=== PATIENT | male | born 1935 ===

== ENCOUNTER 2018-06-18 16:18 | Inpatient (IN) | payer OTHER, MEDICARE ==
[2018-06-18 22:22] VITALS: BMI 25.7
[2018-06-18] MEDS: Docusate-Senna 50 mg-8.6 mg Tab PO SCH (23:37)
[2018-06-19 07:22] LABS: HEMOGLOBIN 13.4 g/dL (12.0-18.0); MEAN CORPUSCULAR HEMOGLOBIN 32.7 pg (27.0-31.0); RBC 4.09 Mil/uL (4.40-5.90); RED CELL DISTRIBUTION WIDTH 14.6 % (11.5-14.5); WHITE BLOOD COUNT 6.5 K/uL (4.8-10.8)
[2018-06-19 07:25] LABS: ALB/GLOB RATIO 0.9 (1.0-2.1); ALBUMIN 3.8 g/dL (3.5-5.0); CALCIUM 9.1 mg/dL (8.4-10.2)
[2018-06-19 07:26] LABS: INR 1.1; PROTHROMBIN TIME 12.6 Seconds (9.8-13.1)
--- NOTE | 2018-06-19 10:26 | CP.PCM.HP ---
History of Present Illness - History of Present Illness History of Present Illness: 82 year old male admitted to [facility] acute inpatient rehabilitation following an admission with dysarthria and dysphagia 2/2 right MCA distribution infarct with conversion. Patient seen and examined at bedside. No complaints offered at this time. Feels well. Left hand weakness that is improving. Denies chest pain, headache, sob, palpitaitons. Present on Admission - Present on Admission Any Indicators Present on Admission: No Review of Systems - Review of Systems All systems: reviewed and no additional remarkable complaints except (mentioned above) Past Patient History - Past Medical History & Family History Past Medical History?: Yes Past Family History: Reviewed and not pertinent - Past Social History Smoking Status: Never Smoked - CARDIAC Hx Cardiac Disorders: Yes Hx Hypertension: Yes - PULMONARY Hx Respiratory Disorders: No - NEUROLOGICAL Hx Neurological Disorder: Yes HX Cerebrovascular Accident: Yes (06/10/2018-Acute Cerebral infarct with Hemorrhagic conversion) - HEENT Hx HEENT Problems: Yes Other/Comment: uses eyeglasses for distance - RENAL Hx Chronic Kidney Disease: No - ENDOCRINE/METABOLIC Hx Endocrine Disorders: No - HEMATOLOGICAL/ONCOLOGICAL Hx Blood Disorders: No Hx AIDS: No Hx Human Immunodeficiency Virus (HIV): No - INTEGUMENTARY Hx Dermatological Problems: No - MUSCULOSKELETAL/RHEUMATOLOGICAL Hx Musculoskeletal Disorders: No Hx Falls: No Hx Gout: Yes - GASTROINTESTINAL Hx Gastrointestinal Disorders: No - GENITOURINARY/GYNECOLOGICAL Hx Genitourinary Disorders: No - PSYCHIATRIC Hx Psychophysiologic Disorder: No Hx Substance Use: No - SURGICAL HISTORY Hx Surgeries: No - ANESTHESIA Hx Anesthesia: No Hx Malignant Hyperthermia: No Meds Allergies/Adverse Reactions: Allergies Allergy/AdvReac Type Severity Reaction Status Date / Time No Known Allergies Allergy Verified 06/18/18 22:23 Physical Exam - Constitutional Appears: Non-toxic, No Acute Distress - Head Exam Head Exam: NORMAL INSPECTION - Eye Exam Eye Exam: Normal appearance - Neck Exam Neck exam: Positive for: Normal Inspection - Respiratory Exam Respiratory Exam: NORMAL BREATHING PATTERN - Cardiovascular Exam Cardiovascular Exam: +S1, +S2 - GI/Abdominal Exam GI & Abdominal Exam: Soft - Neurological Exam Neurological exam: Alert, Oriented x3 - Psychiatric Exam Psychiatric exam: Normal Affect, Normal Mood - Skin Skin Exam: Normal Color, Warm Results - Vital Signs Recent Vital Signs: Last Vital Signs Temp 98.1 F 06/19/18 09:45 Pulse 88 06/19/18 09:45 Resp 18 06/19/18 09:45 BP 152/75 H 06/19/18 09:45 Pulse Ox 98 06/19/18 09:45 - Labs Result Diagrams: 06/19/18 06:30 06/19/18 06:30 Labs: Laboratory Results - last 24 hr 06/19/18 06/19/18 06/19/18 06:30 06:30 06:30 WBC 6.5 RBC 4.09 L Hgb 13.4 Hct 39.3 MCV 96.0 H MCH 32.7 H MCHC 34.0 RDW 14.6 H Plt Count 235 PT 12.6 INR 1.1 Sodium 142 Potassium 4.2 Chloride 106 Carbon Dioxide 25 Anion Gap 15 BUN 41 H Creatinine 1.7 H Est GFR ( Amer) 47 Est GFR (Non-Af Amer) 39 Random Glucose 108 Calcium 9.1 Total Bilirubin 0.8 AST 39 ALT 26 Alkaline Phosphatase 81 Total Protein 8.1 Albumin 3.8 Globulin 4.3 H Albumin/Globulin Ratio 0.9 L Assessment & Plan - Assessment and Plan (Free Text) Assessment: 82 yo male admitted to acute rehab after CVA with conversion plan monitor labs monitor vitals PT/OT neurology consulted Dr. Hawkins consulted meds as prescribed rest of plan as ordered
--- NOTE | 2018-06-19 15:50 | PCM.OPOC ---
Physiatry Overall Plan of Care - Overall Plan of Care Estimated Length of Stay in Weeks: 3 Rehab Impairment: Mobility, Gait, Speech, Balance, Coordination Etiologic Diagnosis: Cerebrovascular Accident Rehab/Medical Prognosis: Fair - Anticipated Interventions Physical Therapy:: Yes Occupational Therapy:: Yes Speech Therapy:: Yes Recreational Therapy:: Yes - Therapy Goals Bed Mobility: Supervision Ambulation: Supervision Functional Positional Changes:: Supervision - Discharge Plan Identification of Barriers to Discharge: Home Situation Discharge Destination: Home
--- NOTE | 2018-06-19 15:52 | CP.PCM.CON ---
History of Present Illness - History of Present Illness History of Present Illness: Dr Hawkins PMR consultation on Sonido Molina, born 1935 who has been admitted to [facility] acute inpatient rehabilitation following an admission with dysarthria and dysphagia with left HP secondary to a right MCA distribution infact. Stable and ready for rehabilitation. [employer] independent. Review of Systems - Constitutional Constitutional: absent: Chills - EENT Eyes: absent: Change in Vision Ears: absent: Ear Discharge, Ear Pain, Dizziness Nose/Mouth/Throat: absent: Nasal Congestion - Cardiovascular Cardiovascular: absent: Chest Pain, Dyspnea on Exertion - Respiratory Respiratory: absent: Dyspnea, Hemoptysis - Gastrointestinal Gastrointestinal: absent: Belching, Constipation - Musculoskeletal Musculoskeletal: absent: Back Pain - Integumentary Integumentary: absent: Bleeding Lesions - Neurological Neurological: absent: Abnormal Movements, Radicular Pain - Psychiatric Psychiatric: absent: Anxiety Past Patient History - Past Medical History & Family History Past Medical History?: Yes - Past Social History Smoking Status: Never Smoked Home Situation {Lives}: Friends - CARDIAC Hx Cardiac Disorders: Yes Hx Hypertension: Yes - PULMONARY Hx Respiratory Disorders: No - NEUROLOGICAL HX Cerebrovascular Accident: Yes (06/10/2018-Acute Cerebral infarct with Hemorrhagic conversion) - HEENT Hx HEENT Problems: Yes Other/Comment: uses eyeglasses for distance - RENAL Hx Chronic Kidney Disease: No - ENDOCRINE/METABOLIC Hx Endocrine Disorders: No - HEMATOLOGICAL/ONCOLOGICAL Hx Blood Disorders: No Hx AIDS: No Hx Human Immunodeficiency Virus (HIV): No - INTEGUMENTARY Hx Dermatological Problems: No - MUSCULOSKELETAL/RHEUMATOLOGICAL Hx Musculoskeletal Disorders: No Hx Falls: No Hx Gout: Yes - GASTROINTESTINAL Hx Gastrointestinal Disorders: No - GENITOURINARY/GYNECOLOGICAL Hx Genitourinary Disorders: No - PSYCHIATRIC Hx Psychophysiologic Disorder: No Hx Substance Use: No - SURGICAL HISTORY Hx Surgeries: No - ANESTHESIA Hx Anesthesia: No Hx Malignant Hyperthermia: No Meds Allergies/Adverse Reactions: Allergies Allergy/AdvReac Type Severity Reaction Status Date / Time No Known Allergies Allergy Verified 06/18/18 22:23 - Medications Medications: Current Medications Atorvastatin Calcium (Lipitor) 40 mg PO HS [facility] Last Admin: 06/18/18 23:32 Dose: 40 mg Lisinopril (Zestril) 40 mg PO DAILY [facility] Last Admin: 06/19/18 08:52 Dose: 40 mg Senna/Docusate Sodium (Senokot S 50 Mg-8.6 Mg) 2 tab PO HS [facility] Last Admin: 06/18/18 23:37 Dose: Not Given Physical Exam - Constitutional Appears: Well, Non-toxic, No Acute Distress - Head Exam Head Exam: ATRAUMATIC, NORMAL INSPECTION, NORMOCEPHALIC - Eye Exam Eye Exam: EOMI - ENT Exam ENT Exam: Mucous Membranes Moist - Respiratory Exam Respiratory Exam: NORMAL BREATHING PATTERN - Cardiovascular Exam Cardiovascular Exam: REGULAR RHYTHM - GI/Abdominal Exam GI & Abdominal Exam: Normal Bowel Sounds. absent: Distended - Extremities Exam Extremities exam: Negative for: calf tenderness - Neurological Exam Neurological exam: Alert, CN II-XII Intact, Oriented x3 - Psychiatric Exam Psychiatric exam: Anxious - Skin Skin Exam: Warm Results - Vital Signs Recent Vital Signs: Last Vital Signs Temp 98.1 F 06/19/18 09:45 Pulse 88 06/19/18 09:45 Resp 18 06/19/18 09:45 BP 152/75 H 06/19/18 09:45 Pulse Ox 98 06/19/18 09:45 - Labs Result Diagrams: 06/19/18 06:30 06/19/18 06:30 Labs: Laboratory Results - last 24 hr 06/19/18 06/19/18 06/19/18 06:30 06:30 06:30 WBC 6.5 RBC 4.09 L Hgb 13.4 Hct 39.3 MCV 96.0 H MCH 32.7 H MCHC 34.0 RDW 14.6 H Plt Count 235 PT 12.6 INR 1.1 Sodium 142 Potassium 4.2 Chloride 106 Carbon Dioxide 25 Anion Gap 15 BUN 41 H Creatinine 1.7 H Est GFR ( Amer) 47 Est GFR (Non-Af Amer) 39 Random Glucose 108 Calcium 9.1 Total Bilirubin 0.8 AST 39 ALT 26 Alkaline Phosphatase 81 Total Protein 8.1 Albumin 3.8 Globulin 4.3 H Albumin/Globulin Ratio 0.9 L Assessment & Plan - Assessment and Plan (Free Text) Assessment: PT/OT to continue to help increase functional independence Team conference for d/c planning Pain: controlled Vascular: no evidence of DVT GI: No evidence of constipation or diarrhea No clear focal strength deficit. Good AROM + dysarthria noted Patient is an excellent acute rehabilitation candidate and will have focused speech, PT, OT and recreational therapy to help facilitate a safe and appropriate d/c plan Impairment code: 01.1
[2018-06-19] MEDS: Docusate-Senna 50 mg-8.6 mg Tab PO SCH (22:39)
[2018-06-20] MEDS: Docusate-Senna 50 mg-8.6 mg Tab PO SCH (21:26)
--- NOTE | 2018-06-20 23:05 | CP.PCM.PN ---
Subjective - Date & Time of Evaluation Date of Evaluation: 06/20/18 Time of Evaluation: 11:00 - Subjective Subjective: patient seen and examined at bedside. no complaints offered today doing well with PT/OT Objective - Vital Signs/Intake and Output Vital Signs (last 24 hours): Temp Pulse Resp BP Pulse Ox 97.5 F L 78 20 134/78 95 06/20/18 20:30 06/20/18 20:30 06/20/18 20:30 06/20/18 20:30 06/20/18 20:30 - Medications Medications: Current Medications Atorvastatin Calcium (Lipitor) 40 mg PO HS [facility] Last Admin: 06/20/18 21:21 Dose: 40 mg Lisinopril (Zestril) 40 mg PO DAILY [facility] Last Admin: 06/20/18 08:15 Dose: 40 mg Senna/Docusate Sodium (Senokot S 50 Mg-8.6 Mg) 2 tab PO [facility] Last Admin: 06/20/18 21:26 Dose: Not Given - Labs Labs: 06/19/18 06:30 06/19/18 06:30 PT 12.6 Seconds (9.8-13.1) 06/19/18 06:30 INR 1.1 06/19/18 06:30 - Additional Findings Additional findings: - Constitutional Appears: Non-toxic, No Acute Distress - Head Exam Head Exam: NORMAL INSPECTION - Eye Exam Eye Exam: Normal appearance - Neck Exam Neck exam: Positive for: Normal Inspection - Respiratory Exam Respiratory Exam: NORMAL BREATHING PATTERN - Cardiovascular Exam Cardiovascular Exam: +S1, +S2 - GI/Abdominal Exam GI & Abdominal Exam: Soft - Neurological Exam Neurological exam: Alert, Oriented x3 - Psychiatric Exam Psychiatric exam: Normal Affect, Normal Mood - Skin Skin Exam: Normal Color, Warm Assessment and Plan - Assessment and Plan (Free Text) Assessment: 82 yo male admitted to acute rehab after CVA with conversion plan monitor labs monitor vitals PT/OT neurology consulted Dr. Hawkins consulted meds as prescribed rest of plan as ordered
[2018-06-21] MEDS ORDERED: Docusate-Senna 50 mg-8.6 mg Tab PO PRN (18:05)
--- NOTE | 2018-06-21 18:16 | CP.PCM.PN ---
Subjective - Date & Time of Evaluation Date of Evaluation: 06/21/18 Time of Evaluation: 18:15 - Subjective Subjective: Patient seen in the room NAD left hand with decreased strength and dexterity. otherwise has good neurological return to this point + dysarthria continue current care Objective - Vital Signs/Intake and Output Vital Signs (last 24 hours): Temp Pulse Resp BP Pulse Ox 97.2 F L 82 18 147/78 98 06/21/18 08:14 06/21/18 08:14 06/21/18 08:14 06/21/18 08:14 06/21/18 08:14 - Medications Medications: Current Medications Atorvastatin Calcium (Lipitor) 40 mg PO HS [facility] Last Admin: 06/20/18 21:21 Dose: 40 mg Lisinopril (Zestril) 40 mg PO DAILY [facility] Last Admin: 06/21/18 08:06 Dose: 40 mg Senna/Docusate Sodium (Senokot S 50 Mg-8.6 Mg) 2 tab PO HS PRN PRN Reason: Constipation - Labs Labs: 06/19/18 06:30 06/19/18 06:30 PT 12.6 Seconds (9.8-13.1) 06/19/18 06:30 INR 1.1 06/19/18 06:30
--- NOTE | 2018-06-22 11:30 | CON ---
DATE: 06/22/2018 REASON FOR CONSULTATION: Stroke. HISTORY OF PRESENTING ILLNESS: The patient is an 82-year-old male who was admitted to acute rehabilitation center after the patient had a stroke involving the right MCA territory. There was some hemorrhagic conversion of the infarct. The patient continues to have weakness on the left side, particularly in the left upper extremity. He denies having any headache or dizziness. REVIEW OF SYSTEMS: Denies any headache, dizziness, chest pain, shortness of breath, abdominal pain, constipation, diarrhea, dysuria, cough, or sputum production. PAST MEDICAL HISTORY: Includes hypertension. CURRENT MEDICATIONS: Include atorvastatin, lisinopril, and Senokot. ALLERGIES: NO KNOWN DRUG ALLERGIES. SOCIAL HISTORY: He denies smoking, use of alcohol, or illicit drugs. FAMILY HISTORY: Reviewed and noncontributory to the case. PHYSICAL EXAMINATION: GENERAL: The patient is an elderly male, sitting in no acute distress. VITAL SIGNS: Blood pressure is 144/78, heart rate is 79 per minute, breathing at a rate of 16 per minute, temperature is 97.7 degrees Fahrenheit. HEENT: Head is normocephalic and atraumatic. NECK: Supple. There are no carotid bruits. LUNGS: Clear. CARDIOVASCULAR SYSTEM: S1 and S2 audible. No murmurs. ABDOMEN: Soft and nontender. Bowel sounds present. NEUROLOGIC EXAMINATION: Mental status: The patient is awake and alert, oriented to time, place, person. Speech is slightly dysarthric. Naming and repetition is normal. Memory and cognition appears intact. Cranial nerve examination: Pupils are 3 mm bilaterally, reactive to light. Visual hunter are full. Extraocular movements are intact. There is decreased sense of labial fold on the left side. Palate is upgoing bilaterally and tongue is midline. Motor examination: Tone is normal. Power in the right side is 5/5, the left side in the upper extremity 3 to 4/5 and the lower extremity 4/5. Plantars are downgoing bilaterally. Cerebellar examination: [id number] shows no dysmetria. Gait is deferred at the moment. LABORATORY DATA: Labs reviewed show WBC of 6.5, hemoglobin of 13.4, hematocrit of 39.3, and platelets of 235. INR is 1.1. Sodium 142, potassium 4.2, chloride 106, carbon dioxide content 25, BUN 41, creatinine 1.7, and glucose 108. DIAGNOSTIC DATA: The patient had a CT scan of the head done on 06/11/2018, which did show moderate size right MCA territory infarct involving the right frontal opercular cortical region. There is an area of signal loss consistent with hemorrhagic conversion. IMPRESSION: Cerebrovascular accident with right middle cerebral artery territory infarction with some hemorrhagic conversion. RECOMMENDATIONS: 1. It has been about two weeks since the patient had a stroke with hemorrhagic conversion. The patient may be started on aspirin 81 mg once a day. 2. The patient to be continued on statin. 3. The patient to have physical therapy and speech therapy. 4. Please continue supportive care and other treatment. Thank you for the opportunity to participate in the care of this patient. Rekha Paez MD
[2018-06-22 11:48] LABS: ALBUMIN 4.2 g/dL (3.5-5.0); CALCIUM 9.5 mg/dL (8.4-10.2)
--- NOTE | 2018-06-22 13:19 | PCM.PSYTMC ---
Acute Rehab Team Conference - - Vital Signs: Vital Signs (Last 8 Hours): Vital Signs 06/22/18 06/22/18 06/22/18 08:05 09:14 09:16 Temperature 98.0 F 97.6 F Pulse Rate 79 77 78 Respiratory 20 20 Rate Blood Pressure 144/78 144/78 144/78 O2 Sat by Pulse 98 Oximetry Pain: 0 - Medications/Other Issues: Comment: patient started on asa by neurologist today. - Toileting: Toileting: Contact Guard - Bladder Management: Bladder Pattern: Normal Voiding Method: Toilet - Transfers: Transfers: Contact Guard - Patient/Family Teaching: Other Intervention:: re: cva. - Goals/Time Frame: Comment: patient to be able to verbalized mgt and s/s of stroke. pt verbalized understanding. - Provider: Registered Nurse:: [facility] - Bed Mobility Bed Mobility: Supervision, Verbal Cues - Transfers Wheelchair to Mat: Supervision, Verbal Cues, Contact Guard Sit to Stand: Supervision, Verbal Cues Comment: no device - Ambulation Level of Assistance: Supervision, Verbal Cues, Contact Guard Distance (ft.): 125 Assistive Devices: N/A Orthoses: n/a Comment: -125 feet x 6 trials with frequent standing rest breaks without device with CG/CS. -HR: 109bpm top 117bpm during gait, asymptomatic. -requires cues for reciprocal arm swing. -postural changes during gait likely due to his age and long-standing chronic postural changes. -limited swing noted during gait in BLE - Stair Negotiation Stairs: Level of Assistance: Supervision, Verbal Cues, Contact Guard Comment: -8 6 inch steps with reciprocal pattern with CG/CS. -VCs for sequencing and safety. -requires cues for improved safety and reduced imp ulsivity - Standing Balance Static Stand: Contact Guard Assist - Pain Pain (assessed during therapy session): 0 Comment: pt denies - Insight/Carryover Insight/Carryover: Fair - Patient/Family Education Comment: lacks insight into safety and effects of his impairments. -therapy schedule, therapy goals, mobility, use of call truong, reiteration of dysphagia diet and not to gargle water as it is a thin liquid, CVA recovery - Assessment/Plan Assessment: Mr. Molina continues to require CG/CS for all mobility without use of an assistive device. Patient presents with impaired insight into his impairments with impulsivity noted. Patient lacks safety awareness during mobility. PT recommends continued skilled therapy to maximize safety and independence with all mobility s/p acute CVA. note: patient reports he has a live-in care-taker whom he pays to assist him with his affairs. - Goals Timeframe: 7 days Goals: -mod I with bed/mat mobility. -DS with transfers, no device. -S to ambulate 500 feet. -S to negotiate 1 flight of steps with single rail - Provider Physical Therapist:: Shelley Max License Number:: [id number] Occupational Therapy - Arousal/Attention/Orientation Level of Consciousness: Awake, Alert Patient Orientation: Person, Place, Time, Appropriate to Age, Appropriate to Situation Assessment Comment: + impulsivity & distractibility - ADL/IADL Self Feeding: Supervision, Verbal Cues, Set-up Help Grooming: Verbal Cues, Set-up Help, Minimal Assistance Dressing-Upper Ext: Verbal Cues, Set-up Help, Minimal Assistance Dressing-Lower Ext: Verbal Cues, Set-up Help, Minimal Assistance Comment: Pt uses favio-techniques for upper/lower body dressing tasks. Will assess bathing 12/4 in pm. - Sitting Balance Static Sitting: Supervision Dynamic Sitting: Reaches across midline, Reaches out of base of support, Reaches within base of support, Contact Guard Assist Comment: seated unsupported - Transfers Wheelchair to Bed Transfers: Verbal Cues, Set-up Help, Contact Guard, Minimal Assistance Toilet Transfers: Verbal Cues, Set-up Help, Contact Guard, Minimal Assistance Comment: -no assistive device. -needs cues for pacing - Wheelchair Management Level of Assistance: Supervision, Verbal Cues, Set-up Help Distance (ft.): 75 - Upper Extremity Status Right Upper Extremity Comment: A/PROM is WNLS, strength 4/5 Left Upper Extremity Comment: -L shoulder flex: 3/5. -L shoulder abd: 3-/5. -L elbow flex/extension: 3/5. -L forearm pronation/supination: 3/5. -L wrist flex/extension: 3-/5. -L grasp/release: 3-/5 , 1/2 range(no isolation noted), L thumb: trace. PROM is WNLS, AROM limited by motor control//strength - Pain Pain (assessed during therapy session): 0 - Insight/Carryover Insight/Carryover: Fair - Patient/Family Education Comment: -educated on rehab/OT goals, functional impairments, plan of care. - w/c propulsion/management. -HEP/LUE management, ROM exercises to complete in room. -adl, functional transfers/mobility training using adaptive/compensatory strategies, pacing, energy conservation. -safety--use of call truong to call for assistance - Assessment/Plan Assessment: Pt is a 82 year old [place] male with dx: Acute infarct with hemorrhagic conversion. *Precautions: +falls(bed/w/c alarms), +impulsivity, cardiac, aspiration precautions--nectar/honey thick and finely chopped, teaspoon for drinks(needs SUPERVISION with meals). Pt limited by the following impairments: -impaired AROM/strength/gross/fine motor control in LUE. - impaired standing balance/tolerance. -impaired activity tolerance/endurance. - impaired safety awareness. -impaired sensation LUE. -impaired knowledge of compensatory/adaptive strategies. -impaired insight/judgement---which impact on functional performance of self care, transfers & mobility. Pt will continue to benefit from skilled occupational therapy to address functional impairments to maximize function & safety in self care using adaptive/compensatory strategies, +DME needs assessment, & caregiver ed for safe transition home with services. Pt demonstrates increase function in LUE t/o as well improve function in upper/lower body dressing(min assist), w/c management/propulsion(supervision ~75 feet). *Goal: -Intermittent Supervision for adls, transfers/mobility, light homemaking and Iadls with assistive devices prn. -Caregiver to be I assisting/cueing pt with daily living tasks prn - Goals Timeframe: 1 week Comment: *FEEDING: I/setup. *GROOMING: I/setup seated: Supervision standing at sink. *UPPER BODY DRESSING: I/setup favio-techniques. *LOWER BODY DRESSING: Supervision & verbal cues. *TOILETING: CS and verbal cues. *BATHING: Close S and verbal cues seated intermittently. *LUE STRENGTH: Increase 3+/5 or greater so can use as gross assist during bimanual tasks--i.e opening containers/packages. *RETRIEVE, GATHER, TRANSPORT ITEMS: Supervision and verbal cues as needed to complete daily living tasks. *W/C PROPULSION/MANAGEMENT: 150 feet+ with Mod I, manage B brake with Mod I. *CAREGIVER ED: Pt's caregiver to assist pt with daily tasks with Supervision from staff - Provider Occupational Therapist:: Myra Decker License Number: [id number] Speech Therapy - Consult Information Patient on Program: Yes Medical Diagnosis: CVA Treatment Diagnosis: -moderate dysarthria. -moderate dysphagia - Assessment Speech/Articulation Impairment: Moderate Dysphagia/Swallowing Impairment: Moderate - Plan Assessment: Sonido Molina presents with 1.) moderate dysarthria characterized by L oral motor weakness resulting in impaired articulatory precision and mildly impaired respiration for phonation, all negatively impacting speech intelligibility; and 2.) moderate oral and suspected pharyngeal dysphagia characterized by L facial weakness resulting in impaired labial seal and bolus manipulation, impaired oral clearance with intermittent L sided pocketing and lingual stasis with solids, mildly prolonged A-P transit time, mildly decreased laryngeal elevation, and intermittent throat clearing with thin liquids; no overt s/s aspiration on all other consistencies tested. Recommend diet advancement to finely chopped solids and nectar thick liquids; maintain aspiration precautions. Also recommend Modified Barium Swallow (MBS) to objectively r/o aspiration and assess pharyngeal swallow function to determine the safest and most lenient PO diet. Pt would benefit from speech and dysphagia tx for improved swallow function and speech intelligibility. Plan: Continue Dysphagia Therapy, Continue Speech/Language Therapy Frequency: 3-5 times per week Duration: 1 week Goals/Timeframe: Please see IE completed 06/21/18 for tx goals/POC Recommendations: -Speech and dysphagia tx 3-5x/week. -Finely chopped solids/nectar thick liquids. -MBS to objectively r/o aspiration and determine least restrictive diet - Provider Therapist: Essence Jones License Number: [id number] Recreational Therapy - Participation Participation: Participates in Individual and/or Group Sessions, Monitors His/Her Own Leisure Time - Attendance Attendance: 3-5 times per week - Activities Leisure Activities: Cards and Games - Socialization Level of Socialization: Initiates/interacts freely with care givers and peer - Diversional Time Diversional Time: television - Assessment Assessment/Plan: Pt was oriented to and educated about the benefits of participating in recreation therapy sessions throughout length of stay on unit. Pt was agreeable to participate in sessions and would benefit from participating in recreation therapy to improve leisure awareness level, utilizing L hand in leisure tasks such as going on his laptop, and improving direction following. Will encourage throughout stay on unit. Problems Currently Limiting Participation: L UE weakness, decrease leisure awareness level, decrease safety awareness level, decrease attention to task, impaired direction following Goals and Time Frame: Pt will be encouraged to participate in 1:1 and group recreation therapy sessions 3-5x week to improve leisure awareness level, activity tolerance level, attention to task, direction following, and utilizing L hand throughout leisure tasks by date of discharge. - Provider Therapist: Jenna Carter Nutrition - Current Diet Current Diet/Supplement/Feedings: 1. Consume 75-100% at mealtime (met, continue). 2. Clinical nutrition to follow any downgrades/upgrades in diet/beverage consistencies per AWNING INSTALLER (Continue) - Appetite Percent Meal Consumed: 75-100% - Comments Comments: Pt seen with good appetite, no GI upset. Swallowing issues as noted per AWNING INSTALLER. - Assessment/Goals/Time Frame Assessments/Goals/Time Frame: Seen 06/21, Follow up planned 06/25. 1. Consume 75- 100% at mealtime (met, continue). 2. Clinical nutrition to follow any downgrades/upgrades in diet/beverage consistencies per AWNING INSTALLER (Continue) - Provider Provider: Christopher Mansfield Case Management - Psychosocial Assessment Support Systems: Ines Clark (friend)- Psychological Interventions/Needs: Patient is AAOx3 and able to verbalize needs. 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 Patient also has about 7 steps to navigate to enter his single level home. Patient/Family Meeting: CM met with patient and rehab team. Intervention/Goal/Outcome: 1. Goal: Intermittent Supervision/Modified Independent 2. Plan: home with home health 3. DME needs 4. schedule follow ups 5. continued emotional support 6. caregiver training with friend - Discharge Plan Discharge Plan: Home with services Home Services: [facility] - Provider Provider: Rita Lazar License Number: [id number] Rehabilitation Plan - Treatment Plan Treatment Plan: Physical Therapy, Occupational Therapy, Speech, Dietary, Patient/Family Education - Recommendation Recommendation: Physical Therapy, Occupational Therapy, Speech, Dietary, Patient/Family Education - Discharge Plan Estimated Date of Discharge: 07/01/18 Discharge to: Home
[2018-06-22] MEDS ORDERED: Barium Sulfate Susp 0.1% w/v, 0.1% w/w 450 mL Bottle PO ONE (13:31)
--- NOTE | 2018-06-22 15:40 | RAD ---
Date of service: 06/22/2018 PROCEDURE: Modified barium video swallow HISTORY: dysphagia COMPARISON: Not available TECHNIQUE: Modified barium video swallow was performed in conjunction with a member of the speech therapy department. Swallowing of barium mixtures of varying viscosity was observed fluoroscopically. Total time of fluoroscopy was 130.5 sec. Cumulative dose is 6.08 mGy FINDINGS: . transient laryngeal penetration was observed with swallowing of thin liquids. There is no evidence of aspiration throughout this examination. No additional abnormality was witnessed. Please see the full evaluation from the department of speech therapy. IMPRESSION: No evidence of aspiration. Please see full report from speech therapy department.
--- NOTE | 2018-06-22 19:01 | CP.PCM.PN ---
Subjective - Date & Time of Evaluation Date of Evaluation: 06/22/18 Time of Evaluation: 19:00 - Subjective Subjective: Patient seen in the room, just back from [facility] speech is recommending vital stim therapy he has regained some left thumb movement doing well continue current care ELOS 07/01/18 Objective - Vital Signs/Intake and Output Vital Signs (last 24 hours): Temp Pulse Resp BP Pulse Ox 97.6 F 122 H 20 144/78 98 06/22/18 09:16 06/22/18 14:44 06/22/18 09:16 06/22/18 09:16 06/22/18 09:14 - Medications Medications: Current Medications Aspirin (Ecotrin) 81 mg PO DAILY [facility] Last Admin: 06/22/18 09:43 Dose: 81 mg Atorvastatin Calcium (Lipitor) 40 mg PO HS [facility] Last Admin: 06/21/18 21:24 Dose: 40 mg Lisinopril (Zestril) 40 mg PO DAILY [facility] Last Admin: 06/22/18 08:05 Dose: 40 mg Senna/Docusate Sodium (Senokot S 50 Mg-8.6 Mg) 2 tab PO HS PRN PRN Reason: Constipation - Labs Labs: 06/19/18 06:30 06/22/18 11:10 PT 12.6 Seconds (9.8-13.1) 06/19/18 06:30 INR 1.1 06/19/18 06:30
--- NOTE | 2018-06-22 20:36 | CP.PCM.CON ---
History of Present Illness - History of Present Illness History of Present Illness: I was asked by Dr García to see the patient. Patient was seen 06/22/182009 Patient is a 82 year old male with HTN who was admitted with CVA. The patient is not on aspirin therapy due to hemorrhagic conversion. He has been tachyc ardic with physical therapy. He denies chest pain or dyspnea. Review of Systems - Constitutional Constitutional: absent: As Per HPI, Anorexia, Chills, Daytime Sleepiness, Excessive Sweating, Fatigue, Fever, Frequent Falls, Headache, Increased Appetite, Lethargy, Malaise, Night Sweats, Snoring, Sleep Apnea, Weight Gain, Weight Loss, Weakness, Other - EENT Eyes: absent: As Per HPI, Blind Spots, Blurred Vision, Change in Vision, Decreased Night Vision, Diplopia, Discharge, Dry Eye, Exophthalmos, Floaters, Irritation, Itchy Eyes, Loss of Peripheral Vision, Pain, Photophobia, Requires Corrective Lenses, Sees Flashes, Spots in Vision, Tunnel Vision, Other Visual Disturbances, Loss of Vision, Other Ears: absent: As Per HPI, Decreased Hearing, Ear Discharge, Ear Pain, Tinnitus, Abnormal Hearing, Disequilibrium, Dizziness, Other Nose/Mouth/Throat: absent: As Per HPI, Epistaxis, Nasal Congestion, Nasal Discharge, Nasal Obstruction, Nasal Trauma, Nose Pain, Post Nasal Drip, Sinus Pain, Sinus Pressure, Bleeding Gums, Change in Voice, Dental Pain, Dry Mouth, Dysphagia, Halitosis, Hoarsness, Lip Swelling, Mouth Lesions, Mouth Pain, Odynophagia, Sore Throat, Throat Swelling, Tongue Swelling, Facial Pain, Neck Pain, Neck Mass, Other - Cardiovascular Cardiovascular: absent: As Per HPI, Acrocyanosis, Chest Pain, Chest Pain at Rest, Chest Pain with Activity, Claudication, Diaphoresis, Dyspnea, Dyspnea on Exertion, Edema, Irregular Heart Rhythm, Pain Radiating to Arm/Neck/Jaw, Leg Edema, Leg Ulcers, Lightheadedness, Orthopnea, Palpitations, Paroxysmal Nocturnal Dyspnea, Pedal Edema, Radiating Pain, Rapid Heart Rate, Slow Heart Rate, Syncope, Other - Respiratory Respiratory: absent: As Per HPI, Cough, Dyspnea, Hemoptysis, Dyspnea on Exertion, Wheezing, Snoring, Stridor, Pain on Inspiration, Chest Congestion, Excessive Mucous Production, Change in Mucous Color, Pain with Coughing, Other - Gastrointestinal Gastrointestinal: absent: As Per HPI, Abdominal Pain, Belching, Bloating, Change in Bowel Habits, Change in Stool Character, Coffee Ground Emesis, Constipation, Cramping, Diarrhea, Dyspepsia, Dysphagia, Early Satiety, Excessive Flatus, Fecal Incontinence, Heartburn, Hematemesis, Hematochezia, Loose Stools, Melena, Nausea, Odynophagia, Temesmus, Vomiting, Other - Genitourinary Genitourinary: absent: As Per HPI, Change in Urinary Stream, Difficulty Urinating, Dysuria, Flank Pain, Hematuria, Pyuria, Nocturia, Urinary Incontinence, Urinary Frequency, Urinary Hesitance, Urinary Urgency, Voiding Freq/Small Amts, Freq UTI, Hx Renal/Bladder Calculi, Hx /Renal Surgery, Bladder Distension, Other - Musculoskeletal Musculoskeletal: absent: As Per HPI, Abnormal Gait, Arthralgias, Atrophy, Back Pain, Deformity, Joint Swelling, Limited Range of Motion, Loss of Height, Muscle Cramps, Muscle Weakness, Myalgias, Neck Pain, Numbness, Radiating Pain into Limb, Stiffness, Tingling, Other - Integumentary Integumentary: absent: As Per HPI, Acne, Alopecia, Bleeding Lesions, Change in Hair, Change in Nails, Change in Pigmentation, Changing Lesions, Dry Skin, Erythema, Furuncle, Hirsutism, Lesions, New Lesions, Non-Healing Lesions, Photosensitivity, Pruritus, Rash, Skin Pain, Skin Ulcer, Sores, Striae, Swelling, Unusual Bruising, Wounds, Jaundice, Other - Neurological Neurological: absent: As Per HPI, Abnormal Gait, Abnormal Hearing, Abnormal Movements, Abnormal Speech, Behavioral Changes, Burning Sensations, Confusion, Convulsions, Disequilibrium, Dizziness, Numbness, Focal Weakness, Frequent Falls, Headaches, Lack of Coordination, Loss of Vision, Memory Loss, Paresthesias, Radicular Pain, Restless Legs, Sensory Deficit, Syncope, Tingling, Tremor, Vertigo, Weakness, Other Visual Disturbances, Other - Psychiatric Psychiatric: absent: As Per HPI, Abnormal Sleep Pattern, Anhedonia, Anxiety, Auditory Hallucinations, Behavioral Changes, Change in Appetite, Change in Libido, Confusion, Depression, Difficulty Concentrating, Hallucinations, Homicidal Ideation, Hopelessness, Irritability, Memory Loss, Mood Swings, Panic Attacks, Paranoia, Suicidal Ideation, Visual Hallucinations, Tactile Hallucinations, Other - Endocrine Endocrine: absent: As Per HPI, Change in Body Appearance, Change in Libido, Cold Intolorance, Deepening of Voice, Excessive Sweating, Fatigue, Flushing, Heat Intolorance, Increase in Ring/Shoe/Hat Size, Palpitations, Polydipsia, Polyphagia, Polyuria, Other - Hematologic/Lymphatic Hematologic: absent: As Per HPI, Easy Bleeding, Easy Bruising, Lymphadenopathy, Other Past Patient History - Past Medical History & Family History Past Medical History?: Yes Past Family History: Reviewed and not pertinent - Past Social History Smoking Status: Never Smoked - CARDIAC Hx Cardiac Disorders: Yes Hx Hypertension: Yes - PULMONARY Hx Respiratory Disorders: No - NEUROLOGICAL Hx Neurological Disorder: Yes HX Cerebrovascular Accident: Yes (06/10/2018-Acute Cerebral infarct with Hemorrhagic conversion) - HEENT Hx HEENT Problems: Yes Other/Comment: uses eyeglasses for distance - RENAL Hx Chronic Kidney Disease: No - ENDOCRINE/METABOLIC Hx Endocrine Disorders: No - HEMATOLOGICAL/ONCOLOGICAL Hx Blood Disorders: No Hx AIDS: No Hx Human Immunodeficiency Virus (HIV): No - INTEGUMENTARY Hx Dermatological Problems: No - MUSCULOSKELETAL/RHEUMATOLOGICAL Hx Musculoskeletal Disorders: No Hx Falls: No Hx Gout: Yes - GASTROINTESTINAL Hx Gastrointestinal Disorders: No - GENITOURINARY/GYNECOLOGICAL Hx Genitourinary Disorders: No - PSYCHIATRIC Hx Psychophysiologic Disorder: No Hx Substance Use: No - SURGICAL HISTORY Hx Surgeries: No - ANESTHESIA Hx Anesthesia: No Hx Malignant Hyperthermia: No Meds Allergies/Adverse Reactions: Allergies Allergy/AdvReac Type Severity Reaction Status Date / Time No Known Allergies Allergy Verified 06/18/18 22:23 - Medications Medications: Current Medications Aspirin (Ecotrin) 81 mg PO DAILY [facility] Last Admin: 06/22/18 09:43 Dose: 81 mg Atorvastatin Calcium (Lipitor) 40 mg PO HS [facility] Last Admin: 06/21/18 21:24 Dose: 40 mg Lisinopril (Zestril) 40 mg PO DAILY [facility] Last Admin: 06/22/18 08:05 Dose: 40 mg Senna/Docusate Sodium (Senokot S 50 Mg-8.6 Mg) 2 tab PO HS PRN PRN Reason: Constipation Physical Exam - Constitutional Appears: Non-toxic - Head Exam Head Exam: NORMAL INSPECTION - Eye Exam Eye Exam: Normal appearance - ENT Exam ENT Exam: Mucous Membranes Moist - Neck Exam Neck exam: Positive for: Full Rom - Respiratory Exam Respiratory Exam: NORMAL BREATHING PATTERN - Cardiovascular Exam Cardiovascular Exam: REGULAR RHYTHM - GI/Abdominal Exam GI & Abdominal Exam: Normal Bowel Sounds - Rectal Exam Rectal Exam: Deferred - Extremities Exam Extremities exam: Negative for: pedal edema - Back Exam Back exam: NORMAL INSPECTION - Neurological Exam Neurological exam: Alert, Oriented x3 - Psychiatric Exam Psychiatric exam: Normal Affect - Skin Skin Exam: Normal Color Results - Vital Signs Recent Vital Signs: Last Vital Signs Temp 97.6 F 06/22/18 09:16 Pulse 122 H 06/22/18 14:44 Resp 20 06/22/18 09:16 BP 144/78 06/22/18 09:16 Pulse Ox 98 06/22/18 09:14 - Labs Result Diagrams: 06/19/18 06:30 06/22/18 11:10 Labs: Laboratory Results - last 24 hr 06/22/18 11:10 Sodium 140 Potassium 5.1 H Chloride 106 Carbon Dioxide 25 Anion Gap 14 BUN 35 H Creatinine 1.7 H Est GFR ( Amer) 47 Est GFR (Non-Af Amer) 39 Random Glucose 110 Calcium 9.5 Total Bilirubin 0.6 AST 38 ALT 28 Alkaline Phosphatase 81 Total Protein 8.4 H Albumin 4.2 Globulin 4.2 H Albumin/Globulin Ratio 1.0 - EKG Data EKG Interpreted by: Myself EKG shows normal: Sinus rhythm Assessment & Plan (1) Tachycardia Assessment and Plan: likley an element of deconditioning. recommend betablocker therapy. start Toprol XL 25 mg daily. Status: Acute (2) HTN (hypertension) Assessment and Plan: decrease lisinopril to 20 mg daily Status: Acute
[2018-06-22] MEDS: Metoprolol Succinate 25 mg XL Tab PO SCH (21:51)
[2018-06-23] MEDS: Metoprolol Succinate 25 mg XL Tab PO SCH (09:10)
[2018-06-23] MEDS ORDERED: Sod Polystyrene Sulf 15 gm/60 ml Susp PO ONE (09:14)
[2018-06-23 11:18] LABS: CALCIUM 8.9 mg/dL (8.4-10.2)
--- NOTE | 2018-06-23 17:42 | CP.PCM.PN ---
Subjective - Date & Time of Evaluation Date of Evaluation: 06/23/18 Time of Evaluation: 17:41 - Subjective Subjective: Patient seen in the room NAD ambulation continues to improve left hand is the most affected body part and showing some improvement in last few days Objective - Vital Signs/Intake and Output Vital Signs (last 24 hours): Temp Pulse Resp BP Pulse Ox 97.2 F L 99 H 20 159/77 H 95 06/23/18 09:44 06/23/18 17:12 06/23/18 17:12 06/23/18 17:12 06/23/18 17:12 - Medications Medications: Current Medications Aspirin (Ecotrin) 81 mg PO DAILY [facility] Last Admin: 06/23/18 09:10 Dose: 81 mg Atorvastatin Calcium (Lipitor) 40 mg PO HS [facility] Last Admin: 06/22/18 21:52 Dose: 40 mg Lisinopril (Zestril) 20 mg PO DAILY [facility] Last Admin: 06/23/18 09:09 Dose: 20 mg Metoprolol Succinate (Toprol Xl) 50 mg PO DAILY [facility] Senna/Docusate Sodium (Senokot S 50 Mg-8.6 Mg) 2 tab PO HS PRN PRN Reason: Constipation - Labs Labs: 06/19/18 06:30 06/23/18 10:55 PT 12.6 Seconds (9.8-13.1) 06/19/18 06:30 INR 1.1 06/19/18 06:30
[2018-06-24] MEDS: Metoprolol Succinate 50 mg XL Tab PO SCH (08:46)
--- NOTE | 2018-06-24 11:36 | CP.PCM.PN ---
Subjective - Date & Time of Evaluation Date of Evaluation: 06/21/18 Time of Evaluation: 11:00 - Subjective Subjective: patient seen and examined at bedside. no acute events overnight. feels well. denies cp/sob all available diagnostic data reviewed vital signs stable Objective - Constitutional Appears: Non-toxic, No Acute Distress - Head Exam Head Exam: NORMAL INSPECTION - Eye Exam Eye Exam: Normal appearance - Respiratory Exam Respiratory Exam: NORMAL BREATHING PATTERN - Cardiovascular Exam Cardiovascular Exam: +S1, +S2 - GI/Abdominal Exam GI & Abdominal Exam: Soft - Neurological Exam Neurological Exam: Alert, Awake, Oriented x3 - Psychiatric Exam Psychiatric exam: Normal Affect, Normal Mood - Skin Skin Exam: Normal Color, Warm Assessment and Plan Cont meds Cont tx Cont PT appreciate recommendations by 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
--- NOTE | 2018-06-24 11:37 | CP.PCM.PN ---
Subjective - Date & Time of Evaluation Date of Evaluation: 06/22/18 Time of Evaluation: 11:00 - Subjective Subjective: patient seen and examined at bedside. no acute events overnight. feels well. denies cp/sob all available diagnostic data reviewed vital signs stable Objective - Constitutional Appears: Non-toxic, No Acute Distress - Head Exam Head Exam: NORMAL INSPECTION - Eye Exam Eye Exam: Normal appearance - Respiratory Exam Respiratory Exam: NORMAL BREATHING PATTERN - Cardiovascular Exam Cardiovascular Exam: +S1, +S2 - GI/Abdominal Exam GI & Abdominal Exam: Soft - Neurological Exam Neurological Exam: Alert, Awake, Oriented x3 - Psychiatric Exam Psychiatric exam: Normal Affect, Normal Mood - Skin Skin Exam: Normal Color, Warm Assessment and Plan Cont meds Cont tx Cont PT appreciate recommendations by neuro/cardiology/vegetable loader
--- NOTE | 2018-06-24 11:38 | CP.PCM.PN ---
Subjective - Date & Time of Evaluation Date of Evaluation: 06/23/18 Time of Evaluation: 11:00 - Subjective Subjective: patient seen and examined at bedside. no acute events overnight. feels well. denies cp/sob all available diagnostic data reviewed vital signs stable Objective - Constitutional Appears: Non-toxic, No Acute Distress - Head Exam Head Exam: NORMAL INSPECTION - Eye Exam Eye Exam: Normal appearance - Respiratory Exam Respiratory Exam: NORMAL BREATHING PATTERN - Cardiovascular Exam Cardiovascular Exam: +S1, +S2 - GI/Abdominal Exam GI & Abdominal Exam: Soft - Neurological Exam Neurological Exam: Alert, Awake, Oriented x3 - Psychiatric Exam Psychiatric exam: Normal Affect, Normal Mood - Skin Skin Exam: Normal Color, Warm Assessment and Plan Cont meds Cont tx Cont PT appreciate recommendations by neuro/cardiology/cushion cover inspector
--- NOTE | 2018-06-24 11:39 | CP.PCM.PN ---
Subjective - Date & Time of Evaluation Date of Evaluation: 06/24/18 Time of Evaluation: 11:00 - Subjective Subjective: patient seen and examined at bedside. no acute events overnight. feels well. denies cp/sob all available diagnostic data reviewed vital signs stable Objective - Constitutional Appears: Non-toxic, No Acute Distress - Head Exam Head Exam: NORMAL INSPECTION - Eye Exam Eye Exam: Normal appearance - Respiratory Exam Respiratory Exam: NORMAL BREATHING PATTERN - Cardiovascular Exam Cardiovascular Exam: +S1, +S2 - GI/Abdominal Exam GI & Abdominal Exam: Soft - Neurological Exam Neurological Exam: Alert, Awake, Oriented x3 - Psychiatric Exam Psychiatric exam: Normal Affect, Normal Mood - Skin Skin Exam: Normal Color, Warm Assessment and Plan Cont meds Cont tx Cont PT appreciate recommendations by neuro/cardiology/cook mayonnaise
--- NOTE | 2018-06-24 16:45 | CP.PCM.PN ---
Subjective - Date & Time of Evaluation Date of Evaluation: 06/24/18 Time of Evaluation: 16:43 - Subjective Subjective: Patient is doing well denies sob/cp making good gains and is likely being discharged shortly given insurance authorization. Will need continued home therapies therapies. Objective - Vital Signs/Intake and Output Vital Signs (last 24 hours): Temp Pulse Resp BP Pulse Ox 98.1 F 81 20 117/61 99 06/24/18 08:24 06/24/18 13:44 06/24/18 08:24 06/24/18 08:46 06/24/18 08:24 - Medications Medications: Current Medications Aspirin (Ecotrin) 81 mg PO DAILY [facility] Last Admin: 06/24/18 08:46 Dose: 81 mg Atorvastatin Calcium (Lipitor) 40 mg PO HS [facility] Last Admin: 06/23/18 21:54 Dose: 40 mg Lisinopril (Zestril) 20 mg PO DAILY [facility] Last Admin: 06/24/18 08:45 Dose: 20 mg Metoprolol Succinate (Toprol Xl) 50 mg PO DAILY [facility] Last Admin: 06/24/18 08:46 Dose: 50 mg Senna/Docusate Sodium (Senokot S 50 Mg-8.6 Mg) 2 tab PO HS PRN PRN Reason: Constipation - Labs Labs: 06/19/18 06:30 06/23/18 10:55 PT 12.6 Seconds (9.8-13.1) 06/19/18 06:30 INR 1.1 06/19/18 06:30
[2018-06-25] MEDS: Metoprolol Succinate 50 mg XL Tab PO SCH (08:07)
--- NOTE | 2018-06-25 18:07 | CP.PCM.PN ---
Subjective - Date & Time of Evaluation Date of Evaluation: 06/25/18 Time of Evaluation: 18:06 - Subjective Subjective: Patient seen in the room + dysarthria remains continued progress in therapies ambulating 250' without AD set for d/c home 06/28/18 Objective - Vital Signs/Intake and Output Vital Signs (last 24 hours): Temp Pulse Resp BP Pulse Ox 98.1 F 72 18 169/82 H 97 06/25/18 08:07 06/25/18 11:59 06/25/18 08:07 06/25/18 08:07 06/25/18 08:07 - Medications Medications: Current Medications Aspirin (Ecotrin) 81 mg PO DAILY [facility] Last Admin: 06/25/18 08:06 Dose: 81 mg Atorvastatin Calcium (Lipitor) 40 mg PO HS [facility] Last Admin: 06/24/18 21:10 Dose: 40 mg Lisinopril (Zestril) 20 mg PO DAILY [facility] Last Admin: 06/25/18 08:07 Dose: 20 mg Metoprolol Succinate (Toprol Xl) 50 mg PO DAILY [facility] Last Admin: 06/25/18 08:07 Dose: 50 mg Senna/Docusate Sodium (Senokot S 50 Mg-8.6 Mg) 2 tab PO HS PRN PRN Reason: Constipation - Labs Labs: 06/19/18 06:30 06/23/18 10:55 PT 12.6 Seconds (9.8-13.1) 06/19/18 06:30 INR 1.1 06/19/18 06:30
[2018-06-26] MEDS: Metoprolol Succinate 50 mg XL Tab PO SCH (09:05)
[2018-06-27] MEDS: Metoprolol Succinate 50 mg XL Tab PO SCH (09:03)
--- NOTE | 2018-06-27 18:40 | PN ---
DATE: 06/27/2018 SUBJECTIVE: The patient is lying on the bed, in no acute distress. Denies having any headache or dizziness. PHYSICAL EXAMINATION: VITAL SIGNS: His blood pressure is 158/65, heart rate 76 per minute, breathing at the rate of 16 per minute, temperature is 97.9 degrees Fahrenheit. HEENT: Head is normocephalic and atraumatic. NECK: Supple. There are no carotid bruits. LUNGS: Clear. CARDIOVASCULAR SYSTEM: S1 and S2 audible. No murmurs. ABDOMEN: Soft, and nontender. Bowel sounds are present. NEUROLOGIC EXAMINATION: Mental status: The patient is awake and alert, and oriented to time, place, and person. Speech is fluent. Naming and repetition are normal. Memory and cognition are intact. Cranial nerve examination: Pupils are 3 mm bilaterally, reactive to light. Visual hunter are full. Extraocular movements are intact. There is decreased sense of labial fold on the left side. Tongue is midline. Motor examination: Tone is normal. Power in the right side is 5/5, power in the left side upper extremity 3 to 4/5, more stronger proximally than distally. Power in the left lower extremity is 4/5. Cerebellar examination: [id number] shows no dysmetria. 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 RECOMMENDATIONS: 1. The patient has been taking aspirin 81 mg once a day and tolerating it very well. 2. The patient also will be continued on statin. 3. The patient's speech is significantly better. 4. The patient continues to have left-sided weakness, for which he needs to be continued to have physical therapy. 5. Please continue supportive care and other treatment. Thank you for the opportunity to participate in the care of this patient. Rekha Paez MD
--- NOTE | 2018-06-27 21:12 | CP.PCM.PN ---
Subjective - Date & Time of Evaluation Date of Evaluation: 06/25/18 Time of Evaluation: 11:00 - Subjective Subjective: patient seen and examined at bedside. no acute events overnight. feels well. denies cp/sob all available diagnostic data reviewed vital signs stable Objective - Constitutional Appears: Non-toxic, No Acute Distress - Head Exam Head Exam: NORMAL INSPECTION - Eye Exam Eye Exam: Normal appearance - Respiratory Exam Respiratory Exam: NORMAL BREATHING PATTERN - Cardiovascular Exam Cardiovascular Exam: +S1, +S2 - GI/Abdominal Exam GI & Abdominal Exam: Soft - Neurological Exam Neurological Exam: Alert, Awake, Oriented x3 - Psychiatric Exam Psychiatric exam: Normal Affect, Normal Mood - Skin Skin Exam: Normal Color, Warm Assessment and Plan Cont meds Cont tx Cont PT appreciate recommendations by neuro/cardiology/faucets assembler
--- NOTE | 2018-06-27 21:13 | CP.PCM.PN ---
Subjective - Date & Time of Evaluation Date of Evaluation: 06/27/18 Time of Evaluation: 10:00 - Subjective Subjective: patient seen and examined at bedside. no acute events overnight. feels well. denies cp/sob all available diagnostic data reviewed vital signs stable Objective - Constitutional Appears: Non-toxic, No Acute Distress - Head Exam Head Exam: NORMAL INSPECTION - Eye Exam Eye Exam: Normal appearance - Respiratory Exam Respiratory Exam: NORMAL BREATHING PATTERN - Cardiovascular Exam Cardiovascular Exam: +S1, +S2 - GI/Abdominal Exam GI & Abdominal Exam: Soft - Neurological Exam Neurological Exam: Alert, Awake, Oriented x3 - Psychiatric Exam Psychiatric exam: Normal Affect, Normal Mood - Skin Skin Exam: Normal Color, Warm Assessment and Plan Cont meds Cont tx Cont PT appreciate recommendations by neuro/cardiology/animal behaviourist
--- NOTE | 2018-06-27 21:13 | CP.PCM.PN ---
Subjective - Date & Time of Evaluation Date of Evaluation: 06/26/18 Time of Evaluation: 11:00 - Subjective Subjective: patient seen and examined at bedside. no acute events overnight. feels well. denies cp/sob all available diagnostic data reviewed vital signs stable Objective - Constitutional Appears: Non-toxic, No Acute Distress - Head Exam Head Exam: NORMAL INSPECTION - Eye Exam Eye Exam: Normal appearance - Respiratory Exam Respiratory Exam: NORMAL BREATHING PATTERN - Cardiovascular Exam Cardiovascular Exam: +S1, +S2 - GI/Abdominal Exam GI & Abdominal Exam: Soft - Neurological Exam Neurological Exam: Alert, Awake, Oriented x3 - Psychiatric Exam Psychiatric exam: Normal Affect, Normal Mood - Skin Skin Exam: Normal Color, Warm Assessment and Plan Cont meds Cont tx Cont PT appreciate recommendations by neuro/cardiology/asbestos cloth inspector
[2018-06-28 08:19] VITALS: BP 156/81; PULSE 76; RESP 18; TEMP 97.7; O2SAT 98
[2018-06-28] MEDS: Metoprolol Succinate 50 mg XL Tab PO SCH (08:20)
--- NOTE | 2018-06-28 09:07 | CP.PCM.DIS ---
Provider - Provider Date of Admission: 06/18/18 22:05 Attending physician: Ant Mayo MD Consults: 06/18/18 22:05 Physiatry Consult Routine Comment: Consulting Provider: Lars Hawkins Consulting Physician: Lars Hawkins Reason for Consult: Physiatry 06/18/18 22:25 Neurology Consult Routine Comment: Consulting Provider: Rekha Paez Consulting Physician: Rekha Paez Reason for Consult: neurology consult 06/19/18 09:00 Pastoral Care Referral Routine Comment: Physician Instructions: Reason For Exam: patient requested 06/21/18 08:30 Case Management Referral Routine Comment: Physician Instructions: Reason For Exam: for discharge planning Reason for Referral: Discharge Planning 06/22/18 13:37 Cardiology Consult Routine Comment: Consulting Provider: Luis Wilson Consulting Physician: Luis Wilson Reason for Consult: tachycardia Hospital Course - Lab Results Lab Results: Most Recent Lab Values WBC 6.5 K/uL (4.8-10.8) 06/19/18 06:30 RBC 4.09 Mil/uL (4.40-5.90) L 06/19/18 06:30 Hgb 13.4 g/dL (12.0-18.0) 06/19/18 06:30 Hct 39.3 % (35.0-51.0) 06/19/18 06:30 MCV 96.0 fl (80.0-94.0) H 06/19/18 06:30 MCH 32.7 pg (27.0-31.0) H 06/19/18 06:30 MCHC 34.0 g/dL (33.0-37.0) 06/19/18 06:30 RDW 14.6 % (11.5-14.5) H 06/19/18 06:30 Plt Count 235 K/uL (130-400) 06/19/18 06:30 PT 12.6 Seconds (9.8-13.1) 06/19/18 06:30 INR 1.1 06/19/18 06:30 Sodium 140 mmol/l (132-148) 06/23/18 10:55 Potassium 4.5 MMOL/L (3.6-5.0) 06/23/18 10:55 Chloride 103 mmol/L (98-107) 06/23/18 10:55 Carbon Dioxide 26 mmol/L (22-30) 06/23/18 10:55 Anion Gap 16 (10-20) 06/23/18 10:55 BUN 28 mg/dl (9-20) H 06/23/18 10:55 Creatinine 1.6 mg/dl (0.8-1.5) H 06/23/18 10:55 Est GFR ( Amer) 50 06/23/18 10:55 Est GFR (Non-Af Amer) 41 06/23/18 10:55 Random Glucose 91 mg/dL (75-110) 06/23/18 10:55 Calcium 8.9 mg/dL (8.4-10.2) 06/23/18 10:55 Total Bilirubin 0.6 mg/dl (0.2-1.3) 06/22/18 11:10 AST 38 U/L (17-59) 06/22/18 11:10 ALT 28 U/L (21-72) 06/22/18 11:10 Alkaline Phosphatase 81 U/L (38-126) 06/22/18 11:10 Total Protein 8.4 G/DL (6.3-8.2) H 06/22/18 11:10 Albumin 4.2 g/dL (3.5-5.0) 06/22/18 11:10 Globulin 4.2 gm/dL (2.2-3.9) H 06/22/18 11:10 Albumin/Globulin Ratio 1.0 (1.0-2.1) 06/22/18 11:10 Discharge Exam - Head Exam Head Exam: NORMAL INSPECTION Discharge Plan - Discharge Medications Prescriptions: Lisinopril [Zestril] 20 mg PO DAILY #30 tab Metoprolol Succinate 50 mg PO DAILY #30 tab.er.24h - Follow Up Plan Condition: GOOD Disposition: HOME/ ROUTINE
== END 2018-06-28 12:42 | disposition home or self-care (01) | DRG 57 ==
PROVIDERS: ADMIT Family Medicine; ATTEND Family Medicine
PROC: F08Z3FZ Feeding/Eating Treatment using Assistive, Adaptive, Supportive or Protective Equipment (ICD-10-PCS; principal; 2018-06-18)
PROC: F08Z2FZ Grooming/Personal Hygiene Treatment using Assistive, Adaptive, Supportive or Protective Equipment (ICD-10-PCS; 2018-06-18)
PROC: F08Z1FZ Dressing Techniques Treatment using Assistive, Adaptive, Supportive or Protective Equipment (ICD-10-PCS; 2018-06-18)
PROC: F07L6GZ Therapeutic Exercise Treatment of Musculoskeletal System - Lower Back / Lower Extremity using Aerobic Endurance and Conditioning Equipment (ICD-10-PCS; 2018-06-18)
PROC: F06ZDZZ Swallowing Dysfunction Treatment (ICD-10-PCS; 2018-06-18)
PROC: F07Z9ZZ Gait Training/Functional Ambulation Treatment (ICD-10-PCS; 2018-06-18)
DX: I69.322 Dysarthria following cerebral infarction (principal); I69.354 Hemiplegia and hemiparesis following cerebral infarction affecting left non-dominant side; I69.391 Dysphagia following cerebral infarction; R13.10 Dysphagia, unspecified; M10.9 Gout, unspecified; I10 Essential (primary) hypertension; R00.0 Tachycardia, unspecified